=== PATIENT | female | born 1980 | race Caucasian/White ===

== ENCOUNTER 2021-06-26 03:16 | Emergency (ER) | payer MEDICAID ==
[~2021-06-26] VITALS: Ht 162.6 cm; Wt 62.1 kg
--- NOTE | 2021-06-26 03:39 | NUR ---
DR. GAUTHIER ATR BEDSIDE, MSE IN PROGRESS.
[2021-06-26] MEDS ORDERED: AMOXicillin 250 MG CAPSULE ONE (03:48)
[2021-06-26] MEDS ORDERED: AMOX500T2 PO (03:51)
[2021-06-26 03:57] VITALS: BP 116/76
--- NOTE | 2021-06-26 03:57 | NUR ---
Patient discharged to home in stable condition. Written and verbal after care instructions given. Patient verbalizes understanding of instructions. Stressed follow up or return to ER for worsening s/s.
[2021-06-26] MEDS ORDERED: AMOXicillin 250 MG CAPSULE PO ONE (04:00)
== END 2021-06-26 04:00 | disposition home or self-care (01) ==
LOC: ER 03:27
DX: O98.812 Other maternal infectious and parasitic diseases complicating pregnancy, second trimester (principal); J02.9 Acute pharyngitis, unspecified; I88.9 Nonspecific lymphadenitis, unspecified; Z3A.14 14 weeks gestation of pregnancy
CPT/HCPCS: A4663

== ENCOUNTER 2024-07-06 14:02 | Emergency (ER) | payer MEDICAID ==
[~2024-07-06] VITALS: Ht 162.6 cm; Wt 45.4 kg
[~2024-07-06 14:02] MED LIST: AMOX500T2 PO
[2024-07-06] MEDS ORDERED: HYDROMORPHONE 1 MG/1 ML DISP.SYRIN ONE (14:55)
[2024-07-06] MEDS ORDERED: ONDANSETRON 4 MG/2 ML VIAL ONE (14:55)
[2024-07-06] MEDS: IV NS 1000 ML 1,000 ML IV ONE ×2 (15:00→16:40)
[2024-07-06] MEDS: HYDROMORPHONE 1 MG/1 ML DISP.SYRIN IV ONE (15:12)
[2024-07-06] MEDS: ONDANSETRON 4 MG/2 ML VIAL IV ONE (15:12)
[2024-07-06 15:15] LABS: BASOPHILS % (AUTO) 0.3 % (0.0-2.0); EOSINOPHILS % (AUTO) 0.2 % (0.0-7.0); HEMATOCRIT 38.4 % (31.2-41.9); HEMOGLOBIN 13.2 g/dL (10.9-14.3); LYMPHOCYTES % (AUTO) 7.9 % (20.5-51.5); MEAN CORPUSCULAR HEMOGLOBIN 30.7 uug (24.7-32.8); MEAN CORPUSCULAR HGB CONC 34 g/dL (32.3-35.6); MEAN CORPUSCULAR VOLUME 89.4 fL (75.5-95.3); MONOCYTES # (AUTO) 0.6 K/uL (0.1-1.30); MONOCYTES % (AUTO) 4.7 % (0.0-11.0); NEUTROPHILS # (AUTO) 10.5 K/uL (1.8-8.9); NEUTROPHILS % (AUTO) 86.9 % (38.5-71.5); PLATELET COUNT (AUTO) 150 K/uL (179-408); RED CELL DISTRIBUTION WIDTH 13.3 % (12.3-17.7); WHITE BLOOD COUNT (AUTO) 12.1 K/uL (3.8-11.8)
[2024-07-06 15:18] LABS: DIFFERENTIAL COMMENT 1
[2024-07-06 15:20] LABS: CALCIUM 9.7 mg/dL (8.5-10.1); CREATININE 0.6 mg/dL (0.6-1.3); POTASSIUM 4.1 mmol/L (3.5-5.1)
[2024-07-06 15:39] LABS: BAND % (MANUAL) 5 % (0-10); LYMPHOCYTES % (MANUAL) 6 % (20-40); MONOCYTES % (MANUAL) 1 % (2-10); NEUTROPHILS % (MANUAL) 88 % (42-75)
[2024-07-06 15:40] LABS: PLATELET ESTIMATE ADEQUATE
[2024-07-06 16:51] LABS: *BILIRUBIN,URIN NEGATIVE (NEGATIVE); *KETONES,URINE NEGATIVE (NEGATIVE); *PROTEIN,URINE 1+ (NEGATIVE); LEUKOCYTE ESTERASE ,URINE TRACE (NEGATIVE); NITRITE, URINE POSITIVE (NEGATIVE); UGLUCOSE NEGATIVE (NEGATIVE)
[2024-07-06 16:52] LABS: *BLOOD, URINE TRACE (NEGATIVE)
[2024-07-06 16:55] LABS: *CLARITY,URINE SLIGHTLY CLOUDY (CLEAR); *COLOR,URINE DARK YELLOW (YELLOW)
[2024-07-06 17:06] LABS: BACTERIA,URINE MANY /HPF (NONE SEEN); RBC,URINE 0-3 /HPF (0-3)
[2024-07-06 17:08] LABS: SQUAMOUS EPITHELIAL CELL,UR MODERATE /HPF (NONE SEEN); URINE AMORPHOUS URATE MODERATE /HPF
[2024-07-06 17:37] LABS: ALBUMIN 3.7 g/dL (3.4-5.0); BILIRUBIN,DIRECT 0.3 mg/dL (0.0-0.2); BILIRUBIN,TOTAL 1.2 mg/dL (0.2-1.0); TOTAL PROTEIN, SERUM 10.5 g/dL (6.4-8.2)
[2024-07-06] MEDS ORDERED: ONDA4TAB5 PO (18:37)
[2024-07-06] MEDS ORDERED: TRAM50TA2 PO (18:37)
[2024-07-06 19:02] VITALS: BP 117/71; O2SAT 97
== END 2024-07-06 19:03 | disposition home or self-care (01) ==
LOC: ER 14:02
DX: R11.2 Nausea with vomiting, unspecified (principal); R10.10 Upper abdominal pain, unspecified; R51.9 Headache, unspecified; Z60.2 Problems related to living alone
CPT/HCPCS: 99284; 96374; 96361; 96375; 80076; 80048; 81001; 83690; 85025; 87186; 87086; 87077; 36415; 85007; J1171; J2405; J7040 ×2; A4606; A4663